=== PATIENT | male | born 1935 | race Caucasian/White ===

== ENCOUNTER 2017-02-03 20:32 | Inpatient (IN) | payer MEDICARE ==
[~2017-02-03] VITALS: Ht 184.2 cm; Wt 77.2 kg
[~2017-02-03 20:32] MED LIST: Acetaminophen PO; CEPH-512 PO; ENAL5TAB PO; ERYT1OIN7 BOTH_EYES; HYDROcodone-APAP 5-325 PO; METO25TA99 PO; NIC7 TOPICAL; POLY17PO6 PO; WARF5TAB PO
[2017-02-03 20:43] VITALS: BP 167/95; PULSE 75; RESP 16; O2SAT 98
--- NOTE | 2017-02-03 21:49 | ED.REPORT ---
HPI-Abd Pain M 40 and Over Date of Service February 03, 2017 ED Provider: Dr. Sumner Pt is an 81 y/o male anticoagulated on Warfarin w/ a hx significant for BPH, prior urinary obstruction, and prior elevated PSA, A-fib, presenting to the ED c /o urinary retention onset yesterday. Since last night, the patient has been experiencing urinary retention, abdominal pain, urinary urgency, dysuria, and appetite. He denies nausea, vomiting, fever, chills. Bladder scan shows 948 mL post void residual. Nursing Notes Stated Complaint: TROUBLE AND PAIN WITH URINATION Chief Complaint: General Complaint Nursing Notes Reviewed: Yes Allergies: Coded Allergies: Sulfa (Sulfonamide Antibiotics) (Verified Allergy, Intermediate, RASH, ) doxycycline (Unverified Adverse Reaction, Mild, 02/03/17) Scheduled ([HYDROcodone-APAP 5-325]) 1 TABLET TABLET 1 TABLET PO Q12H Cephalexin (Keflex) 500 Mg Capsule 500 MG PO BID Enalapril Maleate (Enalapril Maleate) 5 Mg Tablet 5 MG PO DAILY Erythromycin Ophth Oint (Erythromycin Ophth Oint) 14 Applic/3.5 Gm O[place] 1 APPLIC BOTH_EYES TID Metoprolol Succinate ER (Metoprolol Succinate ER) 25 Mg Tablet 25 MG PO BID Warfarin Sodium (Coumadin) 5 Mg Tablet 5 MG PO DAILY@17 Scheduled PRN ([Acetaminophen]) 325 MG TABLET 650 MG PO Q4H PRN PRN For Pain Nicotine 7 mg/24 hr Patch (Nicotine 7 mg/24 hr Patch) 1 Patch Patch 1 PATCH TOPICAL DAILY PRN PRN For Cholesterol Polyethylene Glycol 3350 (Miralax) 17 Gm Powd.pack 17 GM PO DAILY PRN PRN For Constipation General Time Seen by MD: 21:48 Chief Complaint Other (urinary retention) Hx Obtained From: Patient Arrived By: Walk-in Sudden in Onset?: No Onset Occurred: 21 - 23 hours ago Symptom Duration: Since onset Progression since Onset: Constant Location: : Abdomen lower Quality: Painful Radiation: : Does not radiate Severity: Current: Moderate Severity: Maximum: Moderate Recent Healthcare: Previous diagnosis Similar Sx Previous: Yes Past Medical History Past Medical History Significant for coronary artery disease, history of [place], atrial fibrillation on Warfarin, congestive heart failure, benign prostatic hypertrophy with urinary obstruction. The patient has also a history of elevated PSA, hyperlipidemia, blepharospasm, mild cognitive impairment/amnesia. Past Surgical History MOHS SCC scalp, neck cholecystecomy vasectomy Cardiac cath Smoking History Current Every Day Smoker Social History Alcohol Use: In recovery Ambulatory Status Independent Review of Systems Review of Systems Note: +decreased appetite Constitutional: Denies: Chills, Fever Respiratory: Denies: Non-productive cough, Shortness of breath Cardiovascular: Denies: Chest pain, Dyspnea on exertion GI: Reports: Abdominal pain, Diarrhea, Denies: Nausea, Vomiting Male: Reports Dysuria, Reports Urinary frequency, Reports Urinary urgency, Reports Urination decreased, Denies Flank pain, Denies Hematuria, Denies Incontinence, Denies Nocturia, Denies Penile discharge, Denies Penile lesion, Denies Scrotal swelling, Denies Testicular pain, Denies Testicular swelling, Denies Urination increased Complete sys rev & neg: except as marked. Physical Exam Initial Vital Signs Vital Signs (First) Date Time Temp Pulse Resp B/P Pulse Ox O2 Delivery O2 Flow Rate FiO2 02/03/17 20:43 36.1 75 16 167/95 98 Room Air Initial VS: Reviewed, Vital signs abnormal Head / Eyes: Atraumatic, Normocephalic, PERRL ENT: Mucous membranes moist, Conjunctiva normal, No scleral icterus Neck: Supple, Full range of motion Extremities: Vascular intact, Neuro intact, No swelling, No tenderness Skin: Warm, Dry, No cyanosis Neurologic: Alert, Oriented, Nonfocal Psychiatric: Mood/affect normal, Behavior normal, Normal thought content General/Constitutional: Awake, Alert, No acute distress, Cooperative, Not toxic appearing Respiratory / Chest: Breath sounds NL, Breath sounds = bilat, No respiratory distress, No rales, No rhonchi, No wheezing Cardiovascular: Heart rate NL, Heart sounds NL, No gallop, No murmurs, No rubs , Cap refill not delayed, Peripheral circulation NL Heart Rate / Rhythm: Positive: Irreg irregular rhythm Abdomen: Atraumatic, Soft, Non-tender, No guarding, No rebound Very distended bladder Back: Full range of motion, Painless range of motion Interpretation & Diagnostics Lab Results Interpretation Result Diagram: 02/03/17213902/03/172139 Test 02/03/17 21:40 02/03/17 22:05 White Blood Count 11.2th/mm3 (3.8-10.1) Red Blood Count 4.08mil/mm3 (4.40-5.80) Hemoglobin 12.2g/dL (13.8-17.2) Hematocrit 35.9% (41.0-50.0) Mean Corpuscular Volume 88.0fL (81-100) Mean Corpuscular Hemoglobin 29.9pg (27.0-35.0) Mean Corpuscular Hemoglobin Concent 34.0% (32.0-37.0) Red Cell Distribution Width 15.9% (12.3-15.4) Platelet Count 280bil/L (150-400) Neutrophils (%) (Auto) 85.2% (40-74) Lymphocytes (%) (Auto) 4.1% (14-46) Monocytes (%) (Auto) 10.5% (4-12) Eosinophils (%) (Auto) 0% (0-5) Basophils (%) (Auto) 0% (0-3) Prothrombin Time 33.3sec (8.1-12.5) Prothromb Time International Ratio 3.04ratio Sodium Level 130mEq/L (134-144) Potassium Level 4.7mEq/L (3.5-5.2) Chloride Level 91mEq/L (97-108) Carbon Dioxide Level 22mmol/L (18-29) Blood Urea Nitrogen 25mg/dL (8-27) Creatinine 1.13mg/dL (0.76-1.27) Estimat Glomerular Filtration Rate 66mL/min (>59) Glucose Level 188mg/dL (60-99) Lactic Acid Level 2.4mmol/L (0.4-2.0) Calcium Level 9.8mg/dL (8.5-10.1) Total Bilirubin 0.5mg/dL (0.0-1.2) Aspartate Amino Transf (AST/SGOT) 57U/L (0-50) Alanine Aminotransferase (ALT/SGPT) 35U/L (0-44) Alkaline Phosphatase 112U/L (25-160) Total Protein 7.1g/dL (6.4-8.4) Albumin 4.0g/dL (3.4-5.0) Hold Damon Top Tube Received (Received) Urine Color Yellow (YELLOW) Urine Appearance Clear (CLEAR,HAZY) Urine pH 6.0 (5.0-8.0) Urine Specific [place] 1.015 (1.003-1.035) Urine Protein Tracemg/dL (NEG,TRACE) Urine Glucose (UA) Negativemg/dL (NEGATIVE) Urine Ketones Tracemg/dL (NEGATIVE) Urine Occult Blood Small (NEGATIVE) Urine Nitrite Negative (NEGATIVE) Urine Bilirubin Negative (NEGATIVE) Urine Urobilinogen Normalmg/dL (NORMAL) Urine Leukocyte Esterase Negative (NEGATIVE) Urine RBC 11-50/hpf (0-2) Urine WBC 0-5/hpf (0-5) Urine Epithelial Cells Occasional/hpf (NONE-MOD) Urine Crystals None seen (NONE SEEN) Urine Bacteria None/hpf (NONE-FEW) Urine Hyaline Casts None/lpf (NONE) Urine Granular Casts None seen (NONE SEEN) Urine Waxy Casts None seen (NONE SEEN) Urine Red Blood Cell Casts None seen (NONE SEEN) Urine White Blood Cell Casts None seen (NONE SEEN) Urine Mucus None seen (None Seen) Urine Trichomonas None seen (NONE SEEN) Urine Yeast None (NONE SEEN) Urine Culture Reflexed Not indicated Point of Care Testing: Lactate elevated CBC Interpretation CBC normal except, WBC elevated BMP / CMP Interpretation BMP/CMP normal except, Na low, Glucose elevated Urinalysis Interpretation Positive blood CT Abd / Pelvis Interpretation Impression: No small bowel obstruction Appendix not identified and may be surgically absent Diverticulosis with no evidence of diverticulitis. Enlarged and heterogenous prostate gland may be secondary to prostate gland hypertrophy versus neoplasm. Followup is recommended. no evidence of obstructive uropathy Status post cholecystectomy Hepatomegaly with cirrhotic liver changes Abundant retroperitoneal fat may be secondary to cortical steroid usage Right pleural effusion with adjacent atelectasis Transmitted to the ED by Mundo Bowman MD at 0113 Study type: Abdominal CT IV contrast Interpretation / Wet Read by: Interpret - Radiologist Re-Eval/Medical Decision Med Decision/Clinical Course Mr. Gutierrez has had significant growth in the size of the right-sided pleural effusion. Initially thoughts were that this was a parapneumonic effusion and he had been given a single dose of doxycycline. This led to some shortness of breath so therefore he has not been on any antibiotics. His bladder has been successfully decompressed with a Lambert and his got is otherwise benign now. The pleural effusion is far more worrisome. I will place him on IV antibiotics in minimal hospital to have the pleural effusion evaluated and possibly tapped for definitive diagnosis. Source of Hx: Old records Time of Eval: 01:47 Re-Evaluation/Progress Note: Pt rechecked. Informed pt of need for admission. Pt understands and agrees with plan for admission. All questions addressed. Consultation : Referral / Consult Name: Fredi Loo MD Consulted With: Hospitalist Call Returned at: 01:47 Drawing Tracer: Will see patient, Agrees with eval, Agrees with plan, Accepts admit Counseled Regarding: Diagnosis, Lab results, Need for admission Discharge & Departure Primary Impression: Urinary retention Additional Impressions: Pneumonia Pneumonia type: due to unspecified organism Laterality: right Lung location : lower lobe of lung Qualified Code: J18.1 - Lobar pneumonia, unspecified organism Parapneumonic effusion Disposition: ADMITTED TO HOSPITAL Vital Signs - All Vital Signs Date Time Temp Pulse Resp B/P Pulse Ox O2 Delivery O2 Flow Rate FiO2 02/04/17 00:01 66 20 143/75 97 Room Air 02/03/17 20:43 36.1 75 16 167/95 98 Room Air )( All Prior VS Reviewed: Yes Condition: Stable Referrals: Charanjit Coleman MD (PCP) Juan Lew MD Attestation Portions of this note were transcribed by Kannan Overton. I, Dr. Sumner personally performed the history, physical exam and medical decision-making; I reviewed and confirmed the accuracy of the information in the transcribed note. Signed by Gregor Kumari, 02/03/17 - 2200 copies to: Charanjit Coleman MD; Juan Lew MD, Todd P DO February 03, 2017 21:49 KANNAN OVERTON February 03, 2017 21:52
[2017-02-03 21:54] LABS: BASOPHILS % (AUTO) 0 % (0-3); EOSINOPHILS % (AUTO) 0 % (0-5); MONOCYTES % (AUTO) 10.5 % (4-12); Mean Corpuscular Hemoglobin 29.9 pg (27.0-35.0); NEUTROPHILS % (AUTO) 85.2 % (40-74); Platelet Count 280 bil/L (150-400)
[2017-02-03 22:07] LABS: INR 3.04 ratio
[2017-02-03 22:39] LABS: APPEARANCE,URINE CLEAR (CLEAR,HAZY); COLOR,URINE YELLOW (YELLOW); OCCULT BLOOD,URINE SMALL (NEGATIVE); UROBILINOGEN,URINE NORMAL (NORMAL)
[2017-02-03] MEDS ORDERED: 0.9% Sodium Chloride 500 ML IV ONE (22:50)
[2017-02-04] VITALS (9 sets, daily range): BP systolic 143–169; BP diastolic 51–106; PULSE 59–74; RESP 18–24; O2SAT 94–98
[2017-02-04] MEDS ORDERED: cefTRIAXone Inj 2,000 MG in Dextrose 5% Minibag Plus 50 ML IV ONE (01:55)
[2017-02-04] MEDS ORDERED: Ondansetron 2 mg/mL 2 mL Inj IVPUSH PRN (02:10)
[2017-02-04] MEDS ORDERED: Polyethylene Glycol (PEG) 17 Gm Powder PO PRN ×2 (02:10→04:05)
[2017-02-04] MEDS ORDERED: Alum-Mag Hydrox-Simeth 30 mL Suspension PO PRN (02:10)
--- NOTE | 2017-02-04 02:55 | PCM.HPMED ---
Subjective Date of Service February 04, 2017 Primary Provider: Admitting Physician: Fredi Loo MD Primary Care Physician: Charanjit Coleman MD Attending Physician: Fredi Loo MD Chief Complaint: Pleural Effusion, Urinary retention History of Present Illness: Mr. Gutierrez is a 81-year-old male with a past medical history of dementia, atrial fibrillation (on anticoagulation), BPH -with urinary obstruction who presented to the emergency department secondary to abdominal pain 1 day. Per patient's patient had been having an increase in his lower abdominal pressure with resultant pain for the last day or 2, has been drinking more water than usual though he reports going to the bathroom quite frequently she does not have a effective urinary output which results in urinary retention/ bladder distention and abdominal pain. He also endorses a persistent cough and dyspnea on exertion for which she was referred to cardiology on 01/16/[address] scan for a pulmonary nodule, this scan showed a trace right pleural effusion for which she was given the antibiotic doxycycline. Patient states he took 1 pill of the doxycycline developed GI problems and discontinued taking this medication. On 01/31/2017 he was seen in urgent care for shortness of breath, was diagnosed with reactive airway disease and given duo nebs & Qvar CXR showed atelectasis, cardiomegaly but no focal infiltrates. Today he denies fevers/chills, nausea/vomiting, chest pain though he does state a consistent shortness of breath with a slightly productive cough, abdominal pain , dysuria, urinary retention and urinary urgency. A comprehensive review of systems was conducted with the patient and found to be negative except as above in the history of present illness. In the ED patient demonstrated an approximate 0.95 L post void residual, received Lambert catheter with resultant extensive urinary output and relief of lower abdominal pain. An incidental finding of CT showed an extensive right sided pleural effusion which when compared to previous CT chest done 01/23/2017 shows a markedly increase in fluid accumulation. White count 11.2, sodium 1:30, glucose 188, lactic acid 2.4, INR 3.04 Review of Systems: Pertinent positives as noted in HPI. All other systems were reviewed and are negative Allergies Coded Allergies: Sulfa (Sulfonamide Antibiotics) (Verified Allergy, Intermediate, RASH, ) doxycycline (Unverified Adverse Reaction, Mild, 5/31/17) Home Medications Per outpatient records: Warfarin; 5 mg Thursday, 7.5 mg Mondays and Enalapril 10 mg daily Donepezil 10 mg at bedtime Namenda 21 mg daily Oxybutynin chloride 2.5 mg twice a day Metoprolol succinate 25 mg Combivent Qvar Ipratropium albuterol Prednisone 40 mg daily PMH coronary artery disease, history of [place], atrial fibrillation on Warfarin, congestive heart failure, benign prostatic hypertrophy with urinary obstruction. Elevatedrlipidemia, blepharospasm, mild cognitive impairment/amnesia. Tachybradycardia syndrome Pacemaker placement Surgical History MOHS SCC scalp, neck cholecystecomy vasectomy Cardiac cath Family History Father of cancer age 84 Mother CVA age 74, aplastic anemia 2 children in good health Social History Hx Alcohol Use: Yes (Occ rum mixer) Hx Substance Use: No Hx Tobacco Use: Yes Smoking Status: Current Every Day Smoker Living Arrangement: with Family Exam Vital Signs Vital Sign - Last Date Time Temp Pulse Resp B/P Pulse Ox O2 Delivery O2 Flow Rate FiO2 02/04/17 00:01 66 20 143/75 97 Room Air 02/03/17 20:43 36.1 Intake and Output 02/03/17 02/03/17 02/04/17 Cumulative From/Thru 15:00 23:00 07:00 02/03/17 20:43 - 02/03/17 23:11 Intake Total 500 ml 500 ml Output Total 2400 ml 2400 ml Balance -2400 ml 500 ml -1900 ml Intake IV Total 500 ml 500 ml Output Urine Total 2400 ml 2400 ml Bladder Scan Volume Amount 948mL Exam General: Laying in bed in no acute distress, well-developed, well-nourished, appropriately interactive HEENT: Normocephalic, atraumatic. External ears without defect. Pupils equal, round, and reactive to light and accommodation. Neck: Supple with full range of motion. No jugular venous distension. Cardiovascular: Regular rate with irregular rhythm. No murmurs, rubs, or gallops appreciated Pulmonary: Normal respiratory effort with no use of accessory muscles. Lung sounds decreased right posterior lung parisi, crackles right lower lung field Abdomen: Bowel tones present. Soft, nontender, nondistended. No suprapubic tenderness : Lambert cath in place Extremities: No clubbing, cyanosis, edema, or lymphadenopathy appreciated. Skin: Normal temperature, turgor, and texture Neurological: Cranial nerves grossly intact. Psychiatric: Normal mood and affect. Lab and Diagnostics Result Diagram: 02/03/17213902/03/172139 X-Rays, CTs and MRIs CT abdomen and pelvis, [place] read Impression: No small bowel obstruction Appendix not identified and may be surgically absent Diverticulosis with no evidence of diverticulitis. Enlarged and heterogenous prostate gland may be secondary to prostate gland hypertrophy versus neoplasm. Followup is recommended. no evidence of obstructive uropathy Status post cholecystectomy Hepatomegaly with cirrhotic liver changes Abundant retroperitoneal fat may be secondary to cortical steroid usage Right pleural effusion with adjacent atelectasis Transmitted to the ED by Mundo Bowman MD at 0113 Assessment & Plan Mr. Gutierrez is a 81-year-old male with a past medical history of dementia, atrial fibrillation (on anticoagulation), BPH -with urinary obstruction admitted for right sided pleural effusion and urinary retention Acute Right Pleural effusion. Present on admission. Ongoing - CT scan in the ED showed incidental finding of markedly increase in right- sided pleural effusion - Initially thought to be Parapneumonic effusion, given single dose doxycycline approximately one week ago. Patient DC'd ABX secondary to adverse reaction - White count 11.2, pro calcitonin pending, afebrile - Given ceftriaxone, ciprofloxacin and cephalexin in ED - Sputum culture - Respiratory PCR pending - Thoracentesis ordered, pleural fluid analysis to determine etiology (Lights criteria) Lactic acidosis due to tissue hypoxia. Present on admission. Ongoing - Lactic acid 2.4 in ED - IV fluids given in ED - Continue to monitor Chronic A. fib. with supra therapeutic INR. Present on admission. Ongoing - Hold home warfarin secondary to thoracentesis, med rec pending - Repeat INR BPH with urinary retention. Ongoing - This was chief complaint of patient upon presentation to the ED - Symptoms resolved status post Lambert cath placement - Consider urology consult/recommendations Chronic Systolic heart failure. Ongoing - Last echo 2014 shows EF 35-40% - Continue metoprolol - Continue home enalapril - Conservative fluid administration Nicotine dependence. Present on admission. Ongoing - Nicotine patch Complete medication reconciliation pending, patient has multiple medications per outpatient records that do not populate on inpatient med rec. - Acetaminophen as needed for mild pain/fever/headache - Bowel regimen as needed - Antiemetic as needed Patient admitted under inpatient status with expected length of stay > 2 midnights for severity of present symptoms, complexities of treatment plan and risk for adverse event . Pain Evaluation: Adequate Pain Control GI Prophylaxis: H2 chela VTE Prophylaxis: SCDs Resuscitation Status: CPR: Attempt Resuscitation Attending Statement The patient was seen and examined together with Dr. Newell on 02/04 and I agree with the history, exam and plan as outlined in the note above. JEFERSON NEWELL DO February 04, 2017 02:55 Fredi Loo MD February 04, 2017 03:48
[2017-02-04 04:25] LABS: BASOPHILS % (AUTO) 0.1 % (0-3); EOSINOPHILS % (AUTO) 0.1 % (0-5); MONOCYTES % (AUTO) 12.2 % (4-12); Mean Corpuscular Hemoglobin 29.6 pg (27.0-35.0); Mean Corpuscular Volume 87.9 fL (81-100); NEUTROPHILS % (AUTO) 82.2 % (40-74); Platelet Count 232 bil/L (150-400)
[2017-02-04 04:41] LABS: INR 3.03 ratio
[2017-02-04 04:48] LABS: Magnesium 2.2 mg/dL (1.6-2.6)
[2017-02-04 08:20] LABS: Magnesium 2.1 mg/dL (1.6-2.6)
--- NOTE | 2017-02-04 08:27 | DRSVH ---
PROCEDURE: CT ABDOMEN AND PELVIS WITH CONTRAST ([id number]) INDICATIONS: abdominal pain, TECHNIQUE: After the administration of intravenous contrast, 5 mm thick sections acquired from the diaphragm to the symphysis. 5 mm coronal and sagittal reformats were acquired. For radiation dose reduction, the following was used: automated exposure control, adjustment of mA and/or kV according to patient siz e. COMPARISON: None. FINDINGS: Image quality: Excellent. ABDOMEN: Lung bases: Moderate right pleural effusion with adjacent atelectasis. Heart is enlarged, with marked right atrial enlargement Solid organs: There is reflux of IV contrast and hepatic veins suggesting decreased cardiac output; recommend clinical correlation. There is hepatomegaly, and possible cirrhotic changes although techni martina indeterminate. The spleen is grossly unremarkable. Gallbladder surgically absent. Biliary syst em is non dilated. Pancreas appears atrophic. There are scattered pancreatic calcifications. No adr enal nodules. Bilateral renal cortical thinning. Simple appearing left renal cyst measuring approxima tely 3 cm in the inferior pole. Bilateral mild pelviectasis, without definite hydronephrosis. Peritoneum and bowel: Bowel loops demonstrate normal wall thickness and caliber. No free fluid or a ir. No evidence of bowel obstruction. Appendix not identified however no suspicious right lower quadr ant inflammatory changes. Nodes and vessels: No retroperitoneal or mesenteric adenopathy by size criteria. Aorta and inferior vena cava are normal in size. Miscellaneous: No ventral hernias. PELVIS: Genitourinary: Lambert catheter is present. Bladder is decompressed. There is marked enlargement of the prostate. Miscellaneous: No inguinal hernias or adenopathy. Bones: No suspicious bony lesions. No vertebral body compression fractures. IMPRESSION: Moderate right pleural effusion with adjacent atelectasis. Cardiomegaly, and associated CT evidence of decreased cardiac output. Please correlate clinically. Appendix not identified. Please relate clinically and with laboratory data. Marked enlargement of the prostate. Please correlate clinically and with biochemical data such as PSA . No definite hydronephrosis. Left renal cyst. Status post cholecystectomy. Scattered colonic diverticula without evidence of acute complication Hepatomegaly. Please correlate clinically and with LFTs. Dictated by: Cyril Washburn M.D. on 02/04/2017 at 8:17 Approved by: Cyril Washburn M.D. on 02/04/2017 at 8:24
[2017-02-04] MEDS ORDERED: Erythromycin 0.5% 3.5 Gm Ophthalmic Ointment BOTH_EYES SCH (08:30)
[2017-02-04] MEDS: MeTOProlol XL 25 mg ER24 Tablet PO SCH ×2 (08:40→21:01)
[2017-02-04] MEDS ORDERED: WARF5TAB7 PO (12:59)
[2017-02-04] MEDS ORDERED: WARF7.5T4 PO (12:59)
[2017-02-04] MEDS ORDERED: ACET325T51 PO (12:59)
[2017-02-04] MEDS ORDERED: DONE10TA42 PO (13:10)
[2017-02-04] MEDS ORDERED: OXYB5TAB10 PO (13:10)
[2017-02-04] MEDS ORDERED: MEMA21CA PO (13:10)
[2017-02-05 04:55] VITALS: BP 140/77; PULSE 52; RESP 18; O2SAT 95
[2017-02-05] MEDS: Vancomycin Dose per Pharmacist XX SCH ×2 (05:05→08:30)
[2017-02-05] MEDS ORDERED: Vancomycin Inj 1,500 MG in 0.9% Sodium Chloride 500 ML IV ONE (07:10)
--- NOTE | 2017-02-05 07:20 | PCM.CONPHA ---
"Subjective Pleural Effusion, Urinary retention Reason for Pharmacy Consult: Vancomycin Dosing Objective Vital Signs Date Time Temp Pulse Resp B/P Pulse Ox O2 Delivery O2 Flow Rate FiO2 02/05/17 04:55 36.5 52 18 140/77 95 Room Air 02/04/17 20:54 36.7 59 18 160/73 94 Room Air 02/04/17 17:26 37.2 63 18 160/51 95 Room Air 02/04/17 09:28 36.4 60 18 164/84 95 Room Air 02/04/17 09:25 65 Intake and Output 02/03/17 02/04/17 02/05/17 00:00 00:00 00:00 Intake Total 500 ml 837 ml Output Total 2400 ml 2175 ml Balance -1900 ml -1338 ml Weight (Kilograms): 78.400 Height (Feet): 6 Height (Inches): 0.50 Test 02/03/17 21:40 02/03/17 22:05 02/04/17 02:25 02/04/17 04:20 Hold Damon Top Tube Received (Received) Urine Color Yellow (YELLOW) Urine Appearance Clear (CLEAR,HAZY) Urine pH 6.0 (5.0-8.0) Urine Specific [place] 1.015 (1.003-1.035) Urine Protein Tracemg/dL (NEG,TRACE) Urine Glucose (UA) Negativemg/dL (NEGATIVE) Urine Ketones Tracemg/dL (NEGATIVE) Urine Occult Blood Small (NEGATIVE) Urine Nitrite Negative (NEGATIVE) Urine Bilirubin Negative (NEGATIVE) Urine Urobilinogen Normalmg/dL (NORMAL) Urine Leukocyte Esterase Negative (NEGATIVE) Urine RBC 11-50/hpf (0-2) Urine WBC 0-5/hpf (0-5) Urine Epithelial Cells Occasional/hpf (NONE-MOD) Urine Crystals None seen (NONE SEEN) Urine Bacteria None/hpf (NONE-FEW) Urine Hyaline Casts None/lpf (NONE) Urine Granular Casts None seen (NONE SEEN) Urine Waxy Casts None seen (NONE SEEN) Urine Red Blood Cell Casts None seen (NONE SEEN) Urine White Blood Cell Casts None seen (NONE SEEN) Urine Mucus None seen (None Seen) Urine Trichomonas None seen (NONE SEEN) Urine Yeast None (NONE SEEN) Urine Culture Reflexed Not indicated Procalcitonin 0.07ng/mL (0.00-0.08) White Blood Count 11.3th/mm3 (3.8-10.1) Red Blood Count 3.71mil/mm3 (4.40-5.80) Hemoglobin 11.0g/dL (13.8-17.2) Hematocrit 32.6% (41.0-50.0) Mean Corpuscular Volume 87.9fL (81-100) Mean Corpuscular Hemoglobin 29.6pg (27.0-35.0) Mean Corpuscular Hemoglobin Concent 33.7% (32.0-37.0) Red Cell Distribution Width 16.0% (12.3-15.4) Platelet Count 232bil/L (150-400) Neutrophils (%) (Auto) 82.2% (40-74) Lymphocytes (%) (Auto) 4.9% (14-46) Monocytes (%) (Auto) 12.2% (4-12) Eosinophils (%) (Auto) 0.1% (0-5) Basophils (%) (Auto) 0.1% (0-3) Prothrombin Time 33.2sec (8.1-12.5) Prothromb Time International Ratio 3.03ratio Lactic Acid Level 1.1mmol/L (0.4-2.0) Lactate Dehydrogenase 263U/L (100-190) Test 02/04/17 07:37 Sodium Level 138mEq/L (134-144) Potassium Level 4.5mEq/L (3.5-5.2) Chloride Level 101mEq/L (97-108) Carbon Dioxide Level 25mmol/L (18-29) Blood Urea Nitrogen 22mg/dL (8-27) Creatinine 1.11mg/dL (0.76-1.27) Estimat Glomerular Filtration Rate 68mL/min (>59) Glucose Level 98mg/dL (60-99) Calcium Level 9.3mg/dL (8.5-10.1) Magnesium Level 2.1mg/dL (1.6-2.6) Total Bilirubin 0.3mg/dL (0.0-1.2) Aspartate Amino Transf (AST/SGOT) 44U/L (0-50) Alanine Aminotransferase (ALT/SGPT) 29U/L (0-44) Alkaline Phosphatase 95U/L (25-160) Total Protein 5.7g/dL (6.4-8.4) Albumin 3.2g/dL (3.4-5.0) Assessment/Plan Assessment/Plan Vancomycin dose per pharmacy 81y/o Patient with positive blood culture SCr 1.11 SCr & ClCr 1.11 58 t /2 |Vd 13 55 Febrile | Shocky no no WBC | Lact 11.3 PROCAL | MRSA 0.7 U.Ag's| PCR neg LD | time 1500 0800 Dose | Interval 750 12 Plan: * Start vanco 20mg/kg x 1 loading dose, followed by 10mg/kg Q 12 hours * Trough prior to 4th dose (02/06 @ 1999) * Pharmacy will continue to follow patient vanco trough levels and adjust dose according to protocol. Oralia Pearson Pharm.D Feb 05, 2017 07:20"
[2017-02-05] MEDS: MeTOProlol XL 25 mg ER24 Tablet PO SCH ×2 (08:49→21:56)
[2017-02-05 13:26] LABS: INR 2.13 ratio
[2017-02-05 13:57] VITALS: BP 155/83; PULSE 60; RESP 18; O2SAT 96
--- NOTE | 2017-02-05 16:47 | PCM.PNMED ---
Subjective Date of Service Feb 05, 2017 Subjective Patient without complaints in particular. [id number] is at the bedside voices concerns about his weakness, dyspnea with minimal exertion, urinary retention, pleural effusion and multitudes of issues. The patient for his part she tells me does not mention things such as the fact that when he went to urinate multiple times per day. He was not able to urinate at all, this came us us apprised of family when they got to the emergency room. Exam Vital Signs Vital Sign - Last Date Time Temp Pulse Resp B/P Pulse Ox O2 Delivery O2 Flow Rate FiO2 02/05/17 13:57 36.3 60 18 155/83 96 Room Air Intake and Output 02/04/17 02/04/17 02/05/17 Cumulative From/Thru 15:00 23:00 07:00 02/03/17 20:43 - 02/05/17 05:36 Intake Total 0 ml 520 ml 200 ml 1537 ml Output Total 400 ml 575 ml 350 ml 4925 ml Balance -400 ml -55 ml -150 ml -3388 ml Intake Oral 0 ml 520 ml 200 ml 720 ml IV Total 817 ml Output Urine Total 400 ml 575 ml 350 ml 4925 ml # Bowel Movements 1 1 Exam Gen.- A+ O 2-3 no apparent distress. Frail thin male sitting up in bed Eyes- open conjunctiva clear, pupils equal nonicteric ENT- ears normal, nose normal Neck- supple/trach midline CVS- RRR no murmur or gallop Lungs CTA possibly slight decreased breath sounds right base GI- NABS/NT soft Musc- moving 4 no obvious deformity Neuro- cranial nerves II through XII intact to gross examination, nonfocal Skin- warm and dry, no rashes/lesions/wounds noted Psych- pleasant and appropriate, Lab and Diagnostics Result Diagram: 02/04/17 0420 02/05/17 0730 X-Rays, CTs and MRIs CT abdomen and pelvis, [place] read Impression: No small bowel obstruction Appendix not identified and may be surgically absent Diverticulosis with no evidence of diverticulitis. Enlarged and heterogenous prostate gland may be secondary to prostate gland hypertrophy versus neoplasm. Followup is recommended. no evidence of obstructive uropathy Status post cholecystectomy Hepatomegaly with cirrhotic liver changes Abundant retroperitoneal fat may be secondary to cortical steroid usage Right pleural effusion with adjacent atelectasis Transmitted to the ED by Mundo Bowman MD at 0113 Assessment & Plan 81-year-old male admitted 02/04 came in because of abdominal pain/urinary obstruction has been having ongoing issues with dyspnea and cough. 02/05 frail elderly male who has been having difficulties for the last couple weeks and is more than his can manage at home. I am meeting this medically complex patient for the first time 02/05. It appears atrial fibrillation is controlled, he is frail and between CHF and large pleural effusion is causing fairly substantial dyspnea. Hopefully removing this effusion will correct this, and also help define the etiology of the effusion. Dyspnea with exertion- differential includes acute systolic CHF, versus uncontrolled A. fib, versus pneumonia with parapneumonic effusion, probable COPD ? Exacerbation? Secondary to tobacco abuse -Echo, BNP pending 02/05 -PT to ambulate patient and follow heart rate -Awaiting INR to drop for thoracentesis, pro calcitonin normal seems unlikely to be infection however continuing Augmentin/bronchodilators, prednisone 40 mg daily 02/05 -Stopping vancomycin as patient is MRSA negative and single blood culture positive seems unlikely to be more than contaminant given the overall picture. Acute Right Pleural effusion. Present on admission. Ongoing - CT scan in the ED showed incidental finding of markedly increase in right- sided pleural effusion - Initially thought to be Parapneumonic effusion, given single dose doxycycline approximately one week ago. Patient DC'd ABX secondary to adverse reaction - White count 11.2, pro calcitonin normal 02/04, afebrile - Given ceftriaxone, ciprofloxacin and cephalexin in ED - Sputum culture - Respiratory PCR pending - Thoracentesis ordered, pleural fluid analysis to determine etiology (Lights criteria) BPH with urinary retention. Ongoing - This was chief complaint of patient upon presentation to the ED - Symptoms resolved status post Lambert cath placement Chronic A. fib. with supra therapeutic INR. Present on admission. Ongoing - Hold home warfarin secondary to thoracentesis, med rec pending - Repeat INR HTN/Chronic Systolic heart failure. Ongoing-checking echocardiogram and BNP likely acute systolic CHF - Last echo 2014 shows EF 35-40% - Continue metoprolol - Continue home enalapril - Conservative fluid administration Nicotine dependence. Present on admission. Ongoing - Nicotine patch Complete medication reconciliation pending, patient has multiple medications per outpatient records that do not populate on inpatient med rec. - Acetaminophen as needed for mild pain/fever/headache - Bowel regimen as needed - Antiemetic as needed Patient admitted under inpatient status with expected length of stay > 2 midnights for severity of present symptoms, complexities of treatment plan and risk for adverse event . GI Prophylaxis: H2 chela VTE Prophylaxis: SCDs VTE Mechanical Devices: Intermittant Pneumatic CD Resuscitation Status: CPR: Attempt Resuscitation Kamar Bhandari MD Feb 05, 2017 16:47
[2017-02-05] MEDS ORDERED: Albuterol-Ipratropium 3 mL Inhalation Solution NEB PRN (16:50)
--- NOTE | 2017-02-05 17:41 | DRSVH ---
[facility] [address] [place] [address] Echocardiogram Report Name: CURTIS LEWIS CStudy Date: 02/05/2017 Height: 72 in Hospital Exam Location: [facility] Weight: 172 lb Gender: Male BSA: 2.0 m2 : 1935 Age: 81 yrs BP: 155/83 mmHg Reason For Study: Dyspnea History: CAD Ordering Physician: Performed By: Sarahi NORTONIST [facility] Interpretation Summary The left ventricle is mildly dilated. This is increased compared to the previous study (LVIDd increased from 5.1 to 5.9 cm). The ejection fraction is estimated to be 35-40% (No significant change). The right ventricle is mildly dilated. There is a pacemaker lead in the right ventricle (New). The right ventricular systolic function is normal. This is improved compared to the previous study. There is severe biatrial enlargement. Both atria have remained unchanged in size since the prior echo exam. There is mild to moderate mitral regurgitation. Compared to the prior echo study, there has been no change in the severity of mitral regurgitation. There is moderate to severe tricuspid regurgitation. Compared to the prior echo exam, there has been no change in TR severity. The right ventricular systolic pressure is estimated at 51 mmHg assuming a right atrial pressure of 8 mm Hg. Compared to the prior echo exam, there has been an increase in the severity of pulmonary hypertension. There is a small right-sided pleural effusion (New). Procedure: A two-dimensional transthoracic echocardiogram with color flow and Doppler was performed. The study quality was technically good. Comparison is made with the echocardiogram of 08/02/2015. The patient has a paced rhythm. Left Ventricle: The left ventricle is mildly dilated. Left ventricular wall thickness is mildly increased. This is increased compared to the previous study. There is no thrombus. The ejection fraction is estimated to be 35-40%. There has been no significant change since the previous study. Septal motion is consistent with conduction abnormality. There is mild to moderate global hypokinesis of the left ventricle. Diastolic function could not be accurately assessed due to paced rhythm. Right Ventricle: There is a pacemaker lead in the right ventricle. The right ventricle is mildly dilated. The right ventricular systolic function is normal. This is improved compared to the previous study. Atria: There is severe biatrial enlargement. Both atria have remained unchanged in size since the prior echo exam. There is no Doppler evidence for an interatrial shunt. Mitral Valve: The mitral valve leaflets appear borderline thickened, but open well. There is mild mitral annular calcification. There is mild to moderate mitral regurgitation. Compared to the prior echo study, there has been no change in the severity of mitral regurgitation. Aortic Valve: The aortic valve is trileaflet. The aortic valve opens well. The aortic valve is slightly calcified. There is trace aortic regurgitation. Tricuspid Valve: The tricuspid valve leaflets are thin and pliable. The tricuspid annulus is dilated. There is moderate to severe tricuspid regurgitation. The right ventricular systolic pressure is estimated at 51 mmHg assuming a right atrial pressure of 8 mm Hg. Compared to the prior echo exam, there has been no change in TR severity. Compared to the prior echo exam, there has been an increase in the severity of pulmonary hypertension. Pulmonic Valve: The pulmonic valve leaflets are thin and pliable; valve motion is normal. There is mild pulmonic regurgitation. Great Vessels: The aortic root is normal size. The ascending aorta is normal in size. The aortic arch is normal in size. The pulmonary artery is normal size. The IVC is of normal diameter and collapses less than 50% with a sniff. This suggests a right atrial pressure of 8 mm Hg. Pericardium/ Pleura There is no pericardial effusion. There is a small right-sided pleural effusion. MMode/2D Measurements & Calculations LVIDd: 5.9 cm LA dimension: 5.2 cm RA long axis LVOT diam: 2.3 cm LVIDs: 3.7 cm AoV Opening FS: 38.1 % LA A2 area: 27.6 cm RA area EPSS: 0.82 cm LA A4 area: 36.3 cm Ao root diam IVSd: 1.2 cm LA length (vol) : 38.9 cm LVPWd: 1.1 cm RA vol Aortic Jxn: 2.6 cm LA vol: 129.6 ml : 170.ml asc Aorta Diam LA vol index RA : 85.2 mm2 Ao Arch Diam (Prox Trans): 2.6 cm IVC diam: 1.9 cm LV carrizales. diameter/BSA LV sys. diameter/BSA RVD1 (basal) RVD2 (mid): 3.3 cm (cm/m^2): 3.0 (cm/m^2): 1.8 TAPSE: 1.9 cm Doppler Measurements & Calculations Ao V2 max MV E max malachi Med Peak E' Malachi TR max malachi : 120.8 cm/sec : 72.1 cm/sec : 327.7 cm/sec Ao max P.8 mmHg MV P1/2t E/E' med: 16.0 TR max PG Ao mean P.5 mmHg : 54.2 msec Lat Peak E' Malachi : 43.0 mmHg LVOT Max Malachi PA V2 max : 68.3 cm/sec E/E' lat: 6.8 : 58.2 cm/sec E/e' average PA mean PG JOHANNA(I,D): 2.5 cm : 0.74 mmHg sev ratio: 0.60 PA Accel Time : 0.07 sec MV P1/2t max malachi Ao V2 mean LV V1 max PG PA V2 mean : 73.7 cm/sec : 40.3 cm/sec Ao V2 VTI LV V1 VTI: 13.2 cm MVA(P1/2t): 4.1 cm2 JOHANNA(V,D): 2.3 cm2 JOHANNA indexed to BSA (cm^2/m^2): 1.3 Reading Physician:ALISON
[2017-02-05] MEDS: predniSONE 20 mg Tablet PO SCH (18:06)
[2017-02-05] MEDS ORDERED: Vancomycin Inj 750 MG in 0.9% Sodium Chloride 250 ML IV SCH (20:30)
[2017-02-05 21:05] VITALS: BP 164/80; PULSE 62; RESP 18; O2SAT 95
[2017-02-05] MEDS: Amoxicillin-Clav 875-125 mg Tablet PO SCH (21:54)
[2017-02-06] MEDS ORDERED: Micafungin Inj 100 MG in 0.9% Sodium Chloride 100 ML IV SCH (03:15)
[2017-02-06] MEDS ORDERED: 0.9% Sodium Chloride 250 ML ONE (03:46)
[2017-02-06 03:48] LABS: INR 1.79 ratio
[2017-02-06 05:48] VITALS: BP 169/84; PULSE 66; RESP 18; O2SAT 97
[2017-02-06 09:18] VITALS: BP 161/87; PULSE 64; RESP 16; O2SAT 95
[2017-02-06] MEDS: MeTOProlol XL 25 mg ER24 Tablet PO SCH (09:20)
[2017-02-06] MEDS: Amoxicillin-Clav 875-125 mg Tablet PO SCH (09:21)
[2017-02-06] MEDS: predniSONE 20 mg Tablet PO SCH (09:21)
--- NOTE | 2017-02-06 11:18 | PCM.DIMED ---
Discharge Instructions Date of Service Feb 06, 2017 Dates of Hospitalization February 04, 2017 at 02:24 Discharge Diagnosis Discharge Diagnosis Urinary retention, dyspnea, weakness, HTN, CHF acute/chronic Diet Discharge Diet: Low fat, Low Sodium Activity Discharge Activity: No restrictions Call your provider Call your provider for: Shortness of breath Patient Instructions Follow-up Provider: Charanjit Coleman MD Follow-up with PCP in: 1 week (within one week for blood pressure/CHF) Provider: Maira Dominguez MD Follow-up in: 1 week (call for follow-up JOSE) Kamar Bhandari MD Feb 06, 2017 11:18
--- NOTE | 2017-02-06 11:27 | PCM.DC.MED ---
Discharge Summary Date of Service Feb 06, 2017 Dates of Hospitalization Date of Hospital Admission February 04, 2017 at 02:24 Date of Discharge: Feb 06, 2017 Providers: Admitting Physician: Fredi Loo MD Primary Care Physician: Charanjit Coleman MD Attending Physician: Fredi Loo MD Diagnosis at Time of Discharge Diagnosis at Time of Discharge Urinary retention, dyspnea, weakness, HTN, CHF acute/chronic Consultations None Procedures XRay, CTs & MRIs CT abdomen and pelvis, [place] read Impression: No small bowel obstruction Appendix not identified and may be surgically absent Diverticulosis with no evidence of diverticulitis. Enlarged and heterogenous prostate gland may be secondary to prostate gland hypertrophy versus neoplasm. Followup is recommended. no evidence of obstructive uropathy Status post cholecystectomy Hepatomegaly with cirrhotic liver changes Abundant retroperitoneal fat may be secondary to cortical steroid usage Right pleural effusion with adjacent atelectasis Transmitted to the ED by Mundo Bowman MD at 0113 Cardiac Echo Impression Echocardiogram Report: Isamar Abel on 02/05/2017 05:40 The left ventricle is mildly dilated. This is increased compared to the previous study (LVIDd increased from 5.1 to 5.9 cm). The ejection fraction is estimated to be 35-40% (No significant change). The right ventricle is mildly dilated. There is a pacemaker lead in the right ventricle (New). The right ventricular systolic function is normal. This is improved compared to the previous study. There is severe biatrial enlargement. Both atria have remained unchanged in size since the prior echo exam. There is mild to moderate mitral regurgitation. Compared to the prior echo study, there has been no change in the severity of mitral regurgitation. There is moderate to severe tricuspid regurgitation. Compared to the prior echo exam, there has been no change in TR severity. The right ventricular systolic pressure is estimated at 51 mmHg assuming a right atrial pressure of 8 mm Hg. Compared to the prior echo exam, there has been an increase in the severity of pulmonary hypertension. There is a small right-sided pleural effusion (New). Reading Physician:ALISON Invasive Procedures Cath Rossy Huizar MD 10/04/14 [id number] FINDINGS: 1. Femoral angiogram: Right common femoral artery gives rise to SFA and profunda. There is no evidence of contrast extravasation or dissection. There is no significant disease identified. 2. Hemodynamics: Aortic pressure was 159/80. Left ventricular end-diastolic pressure is 12. There is no evidence of aortic stenosis based on pullback. Right ventricular pressure 43 with right ventricular end-diastolic pressure of 4. 3. Coronary angiograms: a. Left main gives rise to LAD and the circumflex. Of note, there is some calcification present in the distal left main and proximal and mid LAD but this disease, while present, is not obstructive. b. LAD is a transapical vessel. It gives rise to a small first diagonal branch, a small second diagonal branch, a small third diagonal branch, a medium size 4th diagonal branch. No obstructive lesions are seen. c. Circumflex is a nondominant vessel. It gives rise to a medium first obtuse marginal branch, a large second obtuse marginal branch, a small third obtuse marginal branch, small fourth obtuse marginal branch and small fifth obtuse marginal branch. There is some calcification present particularly in the third OM, and in the mid portion of the circ after the the fourth OM but nothing obstructive is present. d. Right coronary artery gives rise to PDA and RV branch as well as atrial recurrent branch. No obstructive lesions are seen. IMPRESSIONS: 1. There is evidence of nonischemic cardiomyopathy. His ejection fraction by echocardiogram was 30%. 2. Normal left ventricular filling pressure (11). 3. Uncontrolled hypertension. 4. Unfortunately could not obtain cardiac output because I could not get into the pulmonary artery. PLAN: 1. Due to uncontrolled hypertension, will stop atenolol 50 mg daily. Start carvedilol 12.5 mg twice a day. Increase enalapril from 2.5 mg daily up to 5 mg daily, and follow up in two weeks to see how he is doing. He is dry and euvolemic on examination. Able to lay flat, but he is not currently on a diuretic. 2. In terms of atrial fibrillation, I think it is okay for him to take aspirin on his last day which would be October 05, 2014 and then on October 06, 2014, he can restart his warfarin. Thank you for the opportunity to evaluate the patient Rossy Huizar MD 10/04/14 7452 Brief History Mr. Gutierrez is a 81-year-old male with a past medical history of dementia, atrial fibrillation (on anticoagulation), BPH -with urinary obstruction who presented to the emergency department secondary to abdominal pain 1 day. Per patient's patient had been having an increase in his lower abdominal pressure with resultant pain for the last day or 2, has been drinking more water than usual though he reports going to the bathroom quite frequently she does not have a effective urinary output which results in urinary retention/ bladder distention and abdominal pain. He also endorses a persistent cough and dyspnea on exertion for which she was referred to cardiology on 01/16/[address] scan for a pulmonary nodule, this scan showed a trace right pleural effusion for which she was given the antibiotic doxycycline. Patient states he took 1 pill of the doxycycline developed GI problems and discontinued taking this medication. On 01/31/2017 he was seen in urgent care for shortness of breath, was diagnosed with reactive airway disease and given duo nebs & Qvar CXR showed atelectasis, cardiomegaly but no focal infiltrates. Today he denies fevers/chills, nausea/vomiting, chest pain though he does state a consistent shortness of breath with a slightly productive cough, abdominal pain , dysuria, urinary retention and urinary urgency. A comprehensive review of systems was conducted with the patient and found to be negative except as above in the history of present illness. In the ED patient demonstrated an approximate 0.95 L post void residual, received Lambert catheter with resultant extensive urinary output and relief of lower abdominal pain. An incidental finding of CT showed an extensive right sided pleural effusion which when compared to previous CT chest done 01/23/2017 shows a markedly increase in fluid accumulation. White count 11.2, sodium 1:30, glucose 188, lactic acid 2.4, INR 3.04 Hospital Course 81-year-old male admitted 02/04 came in because of abdominal pain/urinary obstruction has been having ongoing issues with dyspnea and cough. 02/05 frail elderly male who has been having difficulties for the last couple weeks and is more than his can manage at home. I am meeting this medically complex patient for the first time 02/05. It appears atrial fibrillation is controlled, he is frail and between CHF and large pleural effusion is causing fairly substantial dyspnea. Hopefully removing this effusion will correct this, and also help define the etiology of the effusion. Dyspnea with exertion- differential includes acute systolic CHF, versus uncontrolled A. fib, versus pneumonia with parapneumonic effusion, probable COPD ? Exacerbation? Secondary to tobacco abuse -Echo, BNP pending 02/05 -PT to ambulate patient and follow heart rate -Awaiting INR to drop for thoracentesis, pro calcitonin normal seems unlikely to be infection however continuing Augmentin/bronchodilators, prednisone 40 mg daily 02/05 -Stopping vancomycin as patient is MRSA negative and single blood culture positive seems unlikely to be more than contaminant given the overall picture. Acute Right Pleural effusion. Present on admission. Ongoing - CT scan in the ED showed incidental finding of markedly increase in right- sided pleural effusion - Initially thought to be Parapneumonic effusion, given single dose doxycycline approximately one week ago. Patient DC'd ABX secondary to adverse reaction - White count 11.2, pro calcitonin normal 02/04, afebrile - Given ceftriaxone, ciprofloxacin and cephalexin in ED - Sputum culture - Respiratory PCR pending - Thoracentesis ordered, pleural fluid analysis to determine etiology (Lights criteria) BPH with urinary retention. Ongoing - This was chief complaint of patient upon presentation to the ED - Symptoms resolved status post Lambert cath placement Chronic A. fib. with supra therapeutic INR. Present on admission. Ongoing - Hold home warfarin secondary to thoracentesis, med rec pending - Repeat INR HTN/Chronic Systolic heart failure. Ongoing-checking echocardiogram and BNP likely acute systolic CHF - Last echo 2014 shows EF 35-40% - Continue metoprolol - Continue home enalapril - Conservative fluid administration Nicotine dependence. Present on admission. Ongoing - Nicotine patch Complete medication reconciliation pending, patient has multiple medications per outpatient records that do not populate on inpatient med rec. - Acetaminophen as needed for mild pain/fever/headache - Bowel regimen as needed - Antiemetic as needed Patient admitted under inpatient status with expected length of stay > 2 midnights for severity of present symptoms, complexities of treatment plan and risk for adverse event . Exam Vital Signs (Last) Date Time Temp Pulse Resp B/P Pulse Ox O2 Delivery O2 Flow Rate FiO2 02/06/17 09:18 36.9 64 16 161/87 95 Room Air Exam Gen.- A+ O 2-3 no apparent distress. Frail thin male sitting up in bed Eyes- open conjunctiva clear, pupils equal nonicteric ENT- ears normal, nose normal Neck- supple/trach midline CVS-normal rate Lungs-regular, nonlabored normal rate GI-flat Musc- moving 4 no obvious deformity Neuro- cranial nerves II through XII intact to gross examination, nonfocal Skin- warm and dry, no rashes/lesions/wounds noted Psych- pleasant and appropriate, Test 02/03/17 22:05 02/04/17 02:25 02/04/17 04:20 02/04/17 07:37 Urine Color Yellow (YELLOW) Urine Appearance Clear (CLEAR,HAZY) Urine pH 6.0 (5.0-8.0) Urine Specific [place] 1.015 (1.003-1.035) Urine Protein Tracemg/dL (NEG,TRACE) Urine Glucose (UA) Negativemg/dL (NEGATIVE) Urine Ketones Tracemg/dL (NEGATIVE) Urine Occult Blood Small (NEGATIVE) Urine Nitrite Negative (NEGATIVE) Urine Bilirubin Negative (NEGATIVE) Urine Urobilinogen Normalmg/dL (NORMAL) Urine Leukocyte Esterase Negative (NEGATIVE) Urine RBC 11-50/hpf (0-2) Urine WBC 0-5/hpf (0-5) Urine Epithelial Cells Occasional/hpf (NONE-MOD) Urine Crystals None seen (NONE SEEN) Urine Bacteria None/hpf (NONE-FEW) Urine Hyaline Casts None/lpf (NONE) Urine Granular Casts None seen (NONE SEEN) Urine Waxy Casts None seen (NONE SEEN) Urine Red Blood Cell Casts None seen (NONE SEEN) Urine White Blood Cell Casts None seen (NONE SEEN) Urine Mucus None seen (None Seen) Urine Trichomonas None seen (NONE SEEN) Urine Yeast None (NONE SEEN) Urine Culture Reflexed Not indicated Procalcitonin 0.07ng/mL (0.00-0.08) White Blood Count 11.3th/mm3 (3.8-10.1) Red Blood Count 3.71mil/mm3 (4.40-5.80) Hemoglobin 11.0g/dL (13.8-17.2) Hematocrit 32.6% (41.0-50.0) Mean Corpuscular Volume 87.9fL (81-100) Mean Corpuscular Hemoglobin 29.6pg (27.0-35.0) Mean Corpuscular Hemoglobin Concent 33.7% (32.0-37.0) Red Cell Distribution Width 16.0% (12.3-15.4) Platelet Count 232bil/L (150-400) Neutrophils (%) (Auto) 82.2% (40-74) Lymphocytes (%) (Auto) 4.9% (14-46) Monocytes (%) (Auto) 12.2% (4-12) Eosinophils (%) (Auto) 0.1% (0-5) Basophils (%) (Auto) 0.1% (0-3) Lactic Acid Level 1.1mmol/L (0.4-2.0) Lactate Dehydrogenase 263U/L (100-190) Magnesium Level 2.1mg/dL (1.6-2.6) Total Bilirubin 0.3mg/dL (0.0-1.2) Aspartate Amino Transf (AST/SGOT) 44U/L (0-50) Alanine Aminotransferase (ALT/SGPT) 29U/L (0-44) Alkaline Phosphatase 95U/L (25-160) Total Protein 5.7g/dL (6.4-8.4) Albumin 3.2g/dL (3.4-5.0) Test 02/05/17 07:30 02/06/17 03:15 Pro-B-Type Natriuretic Peptide 4307pg/mL (0-486) Prothrombin Time 19.4sec (8.1-12.5) Prothromb Time International Ratio 1.79ratio Sodium Level 135mEq/L (134-144) Potassium Level 4.3mEq/L (3.5-5.2) Chloride Level 99mEq/L (97-108) Carbon Dioxide Level 24mmol/L (18-29) Blood Urea Nitrogen 22mg/dL (8-27) Creatinine 1.03mg/dL (0.76-1.27) Estimat Glomerular Filtration Rate 74mL/min (>59) Glucose Level 169mg/dL (60-99) Calcium Level 9.1mg/dL (8.5-10.1) Hold Damon Top Tube Received (Received) Microbiology Results EKG personally reviewed 02/04 on 02/06 Rate 65, QTC is read as 490 ms I am sure it is much less. Afib/flut and V-paced complexes . Left bundle branch block . When compared with ECG of 04-Aug-2015 6:07:23, . No significant change Discharge Medications Discharge Medications Amoxicillin/Clav K 875-125 mg (Amoxicillin/Clav K 875-125 mg) 875 Mg Tab 1 TAB PO BID Prescribed by: REMIGIO FOX MD Donepezil (Donepezil) 10 Mg Tablet 10 MG PO HS (Reported) Enalapril Maleate (Enalapril Maleate) 10 Mg Tablet 10 MG PO DAILY Prescribed by: REMIGIO FOX MD Lactobacillus Acidophilus (Acidophilus) 1 Each Capsule 1 EACH PO DAILY Prescribed by: REMIGIO FOX MD Memantine HCl (Namenda-XR) 21 Mg Cap.spr.24 21 MG PO DAILY (Reported) Metoprolol Succinate ER (Metoprolol Succinate ER) 25 Mg Tablet 25 MG PO BID Prescribed by: CAMELIA MEAD MD Nicotine 7 mg/24 hr Patch (Nicotine 7 mg/24 hr Patch) 1 Each Patch.td24 1 PATCH TOPICAL Q24H Prescribed by: REMIGIO FOX MD Prednisone (Deltasone) 20 Mg Tablet 40 MG PO DAILY Prescribed by: REMIGIO FOX MD Tamsulosin (Flomax) 0.4 Mg Capsule 0.4 MG PO DAILY Prescribed by: REMIGIO FOX MD Warfarin Sodium (Warfarin Sodium) 5 Mg Tablet 5 MG PO ,,Fr,Sa,Spears (Reported) Warfarin Sodium (Warfarin Sodium) 7.5 Mg Tablet 7.5 MG PO Mo,Th (Reported) As needed Acetaminophen (Acetaminophen) 325 Mg Tablet 500-1,000 MG PO Q4H PRN PRN For Fever (Reported) Albuterol HFA (Proair HFA) 8.5 Gm Hfa.aer.ad 2 PUFFS INHALATION Q4H PRN PRN For Shortness of Breath Prescribed by: REMIGIO FOX MD Polyethylene Glycol 3350 (Miralax) 17 Gm Powd.pack 17 GM PO DAILY PRN PRN For Constipation Prescribed by: CAMELIA MEAD MD Followup Plan Disposition: Going home, declined home health Discharge Diet: Low fat, Low Sodium Discharge Activity: No restrictions Follow-up Provider: Charanjit Coleman MD Follow-up with PCP in: 1 week (within one week for blood pressure/CHF) Provider: Maira Dominguez MD Follow-up in: 1 week (call for follow-up JOSE) Time spent Greater than 30 minutes copies to: Charanjit Coleman MD; Maira Dominguez MD, Andris E MD Feb 06, 2017 11:27
[2017-02-06] MEDS ORDERED: ENAL10TA PO (11:33)
[2017-02-06] MEDS ORDERED: TAMS0.4C98 PO (11:33)
[2017-02-06] MEDS ORDERED: NIC7 TOPICAL (11:33)
[2017-02-06] MEDS ORDERED: LACT1CAP13 PO (11:33)
[2017-02-06] MEDS ORDERED: PRED-508 PO (11:33)
[2017-02-06] MEDS ORDERED: AGM875T PO (11:33)
[2017-02-06] MEDS ORDERED: ALBU8.5H2 INHALATION (11:34)
--- NOTE | 2017-02-06 13:54 | DRSVH ---
CORRECTED ACCOUNT AND ACCESSION/PLACER NUMBERS ON 02/12/17 PROCEDURE: X-RAY CHEST ONE VIEW ([id number]) INDICATIONS: 81-year-old male status post thoracentesis. TECHNIQUE: One view of the chest was acquired. COMPARISON: [facility], CR, XR CHEST 2VW, 01/31/2017, 13:01. [facility], CR , XR CHEST 2VW, 08/04/2015, 8:43. [facility], CR, XR CHEST 1VW (PORTABLE), 08/03/2015, 1 2:11. FINDINGS: Surgical changes and devices: Left chest wall single lead pacemaker is again noted. Lungs and pleura: There is trace residual right basal pleural effusion. No pneumothorax. No acute air space opacities. Mediastinum: Mediastinal contours appear normal. Heart size is normal. There is aortic atheroscler osis. Bones and chest wall: No suspicious bony lesions. Overlying soft tissues appear unremarkable. IMPRESSION: Trace residual right basal pleural effusion after thoracentesis. No pneumothorax. Dictated by: Denny Ragsdale M.D. on 02/06/2017 at 13:51 Approved by: Denny Ragsdale M.D. on 02/06/2017 at 13:53
--- NOTE | 2017-02-06 14:02 | ABG ---
DateTimeAnalyzed 13:55:00 -_ pH ____7.433 - pCO2 ___41.8__ -mmHg pO2 172 -mmHg HCO3- ___27.4__ -mmol/L ABE ____3.5__ -mmol/L tHb ____0.03_ -g/dL FIO2 ___21.0__ -% Drawn By as - Date/Time Notified____ 14:01:00 -_ Notified By ams - Notified Whom RN - B 759 -mmHg tO2 ____0.5__ -Vol% Asael test N/A -
--- NOTE | 2017-02-06 14:25 | DRSVH ---
PROCEDURE: US GUIDED THORACENTESIS BY REFERRING PHYSICIAN ([id number]) INDICATIONS: Pleural Effusion TECHNIQUE: The indications, alternatives, benefits, risks, and complications of the procedure were explained to the patient. Written informed consent was obtained and placed in the chart. The chest was examined sonographically, and an appropriate site was chosen for thoracentesis. The skin was prepared and piper ped in the usual sterile fashion, and 1% lidocaine was infiltrated from the skin down through the ple ural surface. A 19-gauge catheter-covered needle was then introduced into the pleural space, the cat heter was advanced and the needle was withdrawn, and thereafter pleural fluid was aspirated. The cat heter was then removed and a dressing was applied. COMPARISON: [facility], CR, XR CHEST 1VW, 02/06/2017, 13:47. FINDINGS: Access site: Right hemithorax. Needle: One-Step centesis catheter with introducer needle. Fluid volume and description: 120 cc clear pleural fluid. Fluid sent for diagnostic testing: Fluid sent for cytology, multiple chemistry panels and therapeuti c drainage. Medications: 1% lidocaine for local anaesthesia. Complications: None; post-procedural chest radiograph is pending to assess for pneumothorax. IMPRESSION: Successful ultrasound-guided thoracentesis. Dictated by: Luis ASHFORD Interpreted: Lonnie Harley MD on 02/06/2017 at 14:22 Transcribed by: JANUARY on 02/06/2017 at 14:24 Approved by: Lonnie Harley M.D. on 02/06/2017 at 16:35
--- NOTE | 2017-02-06 14:52 | PCM.DC.MED ---
Discharge Summary Date of Service Feb 06, 2017 Dates of Hospitalization Date of Hospital Admission February 04, 2017 at 02:24 Date of Discharge: Feb 06, 2017 Providers: Admitting Physician: Fredi Loo MD Primary Care Physician: Charanjit Coleman MD Attending Physician: Fredi Loo MD Diagnosis at Time of Discharge Diagnosis at Time of Discharge Urinary retention, dyspnea/right lung consolidation with small pleural effusion , weakness, HTN, CHF acute/chronic Consultations None Procedures XRay, CTs & MRIs CT abdomen and pelvis, [place] read Impression: No small bowel obstruction Appendix not identified and may be surgically absent Diverticulosis with no evidence of diverticulitis. Enlarged and heterogenous prostate gland may be secondary to prostate gland hypertrophy versus neoplasm. Followup is recommended. no evidence of obstructive uropathy Status post cholecystectomy Hepatomegaly with cirrhotic liver changes Abundant retroperitoneal fat may be secondary to cortical steroid usage Right pleural effusion with adjacent atelectasis Transmitted to the ED by Mundo Bowman MD at 0113 ECG 12 Lead EKG personally reviewed 02/04 on 02/06 Rate 65, QTC is read as 490 ms I am sure it is much less. Afib/flut and V-paced complexes . Left bundle branch block . When compared with ECG of 04-Aug-2015 6:07:23, . No significant change Cardiac Echo Impression Echocardiogram Report: Isamar Abel on 02/05/2017 05:40 The left ventricle is mildly dilated. This is increased compared to the previous study (LVIDd increased from 5.1 to 5.9 cm). The ejection fraction is estimated to be 35-40% (No significant change). The right ventricle is mildly dilated. There is a pacemaker lead in the right ventricle (New). The right ventricular systolic function is normal. This is improved compared to the previous study. There is severe biatrial enlargement. Both atria have remained unchanged in size since the prior echo exam. There is mild to moderate mitral regurgitation. Compared to the prior echo study, there has been no change in the severity of mitral regurgitation. There is moderate to severe tricuspid regurgitation. Compared to the prior echo exam, there has been no change in TR severity. The right ventricular systolic pressure is estimated at 51 mmHg assuming a right atrial pressure of 8 mm Hg. Compared to the prior echo exam, there has been an increase in the severity of pulmonary hypertension. There is a small right-sided pleural effusion (New). Reading Physician:PM Invasive Procedures Cardiac cath -Rossy Huizar MD 10/04/14 8686 1. There is evidence of nonischemic cardiomyopathy. His ejection fraction by echocardiogram was 30%. 2. Normal left ventricular filling pressure (11). 3. Uncontrolled hypertension. 4. Unfortunately could not obtain cardiac output because I could not get into the pulmonary artery. PLAN: 1. Due to uncontrolled hypertension, will stop atenolol 50 mg daily. Start carvedilol 12.5 mg twice a day. Increase enalapril from 2.5 mg daily up to 5 mg daily, and follow up in two weeks to see how he is doing. He is dry and euvolemic on examination. Able to lay flat, but he is not currently on a diuretic. 2. In terms of atrial fibrillation, I think it is okay for him to take aspirin on his last day which would be October 05, 2014 and then on October 06, 2014, he can restart his warfarin. Thank you for the opportunity to evaluate the patient. Rossy Huizar MD 10/04/14 6600 Other Diagnostics US GUIDED THORACENTESIS: Lonnie Harley MD on 02/06/2017 at 14:22 Access site: Right hemithorax. Needle: One-Step centesis catheter with introducer needle. Fluid volume and description: 120 cc clear pleural fluid. Fluid sent for diagnostic testing: Fluid sent for cytology, multiple chemistry panels and therapeutic drainage. Medications: 1% lidocaine for local anaesthesia. Complications: None; post-procedural chest radiograph is pending to assess for pneumothorax. IMPRESSION: Successful ultrasound-guided thoracentesis. Dictated by: Luis Caldwell [facility] Interpreted: Lonnie Harley MD on 02/06/2017 at 14:22 Brief History 81-year-old male with a past medical history of dementia, atrial fibrillation ( on anticoagulation), BPH -with urinary obstruction who presented to the emergency department secondary to abdominal pain 1 day. Per patient's patient had been having an increase in his lower abdominal pressure with resultant pain for the last day or 2, has been drinking more water than usual though he reports going to the bathroom quite frequently she does not have a effective urinary output which results in urinary retention/bladder distention and abdominal pain. He also endorses a persistent cough and dyspnea on exertion for which she was referred to cardiology on 01/16/[address] scan for a pulmonary nodule, this scan showed a trace right pleural effusion for which she was given the antibiotic doxycycline. Patient states he took 1 pill of the doxycycline developed GI problems and discontinued taking this medication. On 01/31/2017 he was seen in urgent care for shortness of breath, was diagnosed with reactive airway disease and given duo nebs & Qvar CXR showed atelectasis, cardiomegaly but no focal infiltrates. Today he denies fevers/chills, nausea/vomiting, chest pain though he does state a consistent shortness of breath with a slightly productive cough, abdominal pain, dysuria, urinary retention and urinary urgency. A comprehensive review of systems was conducted with the patient and found to be negative except as above in the history of present illness. In the ED patient demonstrated an approximate 0.95 L post void residual, received Lambert catheter with resultant extensive urinary output and relief of lower abdominal pain. An incidental finding of CT showed an extensive right sided pleural effusion which when compared to previous CT chest done 01/23/2017 shows a markedly increase in fluid accumulation. White count 11.2, sodium 1:30, glucose 188, lactic acid 2.4, INR 3.04 Hospital Course 81-year-old male admitted 02/04 came in because of abdominal pain/urinary obstruction has been having ongoing issues with dyspnea and cough. 02/05 frail elderly male who has been having difficulties for the last couple weeks and is more than his can manage at home. I am meeting this medically complex patient for the first time 02/05. It appears atrial fibrillation is controlled, he is frail and between CHF and large pleural effusion is causing fairly substantial dyspnea. Hopefully removing this effusion will correct this, and also help define the etiology of the effusion. 02/06 patient has been reportedly ambulating the hallway he is back on room air. And has elected to keep the Lambert catheter until they can see the urologist rather than doing a voiding trial here. They have declined home health as he is doing pretty well. He had a thoracentesis done today just prior to discharge the results of which are still pending but they are not going to change the management which includes finishing a course of antibiotics for pneumonia. Resume his warfarin on discharge echocardiogram unchanged from prior. Blood pressure was little bit SO we are resuming from 5 mg enalapril to 10 mg but he needs follow-up for the blood pressure. I would have a low tolerance to starting this patient on furosemide if he is dyspneic, and bronchodilators and possibly even prednisone. Since he has not and he is on room air and did not pursue any of those avenues during this hospitalization prior to discharge. Dyspnea with exertion- differential includes acute systolic CHF, uncontrolled A. fib, pneumonia with parapneumonic effusion, probable COPD? Exacerbation? Secondary to tobacco abuse -Echo unchanged 02/05, BNP 4307 02/05 -PT to ambulate patient and follow heart rate -Awaiting INR to drop for thoracentesis, pro calcitonin normal seems unlikely to be infection however continuing Augmentin/bronchodilators, prednisone 40 mg daily 02/05 -Stopping vancomycin as patient is MRSA negative and single blood culture positive seems unlikely to be more than contaminant given the overall picture. Acute Right Pleural effusion. Present on admission. Ongoing - CT scan in the ED showed incidental finding of markedly increase in right- sided pleural effusion - Initially thought to be Parapneumonic effusion, given single dose doxycycline approximately one week ago. Patient DC'd ABX secondary to adverse reaction - White count 11.2, pro calcitonin normal 02/04, afebrile - Given ceftriaxone, ciprofloxacin and cephalexin in ED - Sputum culture - Respiratory PCR pending - Thoracentesis ordered, pleural fluid analysis to determine etiology (Lights criteria) BPH with urinary retention. Ongoing - This was chief complaint of patient upon presentation to the ED - Symptoms resolved status post Lambert cath placement Chronic A. fib. with supra therapeutic INR. Present on admission. Ongoing - Hold home warfarin secondary to thoracentesis, med rec pending - Repeat INR HTN/Chronic Systolic heart failure. Ongoing-checking echocardiogram and BNP likely acute systolic CHF - Last echo 2014 shows EF 35-40%, repeat 02/05 unchanged - Continue metoprolol - Continue home enalapril - Conservative fluid administration Nicotine dependence. Present on admission. Ongoing - Nicotine patch Complete medication reconciliation pending, patient has multiple medications per outpatient records that do not populate on inpatient med rec. - Acetaminophen as needed for mild pain/fever/headache - Bowel regimen as needed - Antiemetic as needed Patient admitted under inpatient status with expected length of stay > 2 midnights for severity of present symptoms, complexities of treatment plan and risk for adverse event . Exam Vital Signs (Last) Date Time Temp Pulse Resp B/P Pulse Ox O2 Delivery O2 Flow Rate FiO2 02/06/17 09:18 36.9 64 16 161/87 95 Room Air Exam Gen.- A+ O 2-3 no apparent distress. Frail thin male sitting up in bed Eyes- open conjunctiva clear, pupils equal nonicteric ENT- ears normal, nose normal Neck- supple/trach midline CVS-normal rate Lungs regular, nonlabored GI-flat Musc- moving 4 no obvious deformity Neuro- cranial nerves II through XII intact to gross examination, nonfocal Skin- warm and dry, no rashes/lesions/wounds noted Psych- pleasant and appropriate, Test 02/03/17 22:05 02/04/17 02:25 02/04/17 04:20 02/04/17 07:37 Urine Color Yellow (YELLOW) Urine Appearance Clear (CLEAR,HAZY) Urine pH 6.0 (5.0-8.0) Urine Specific [place] 1.015 (1.003-1.035) Urine Protein Tracemg/dL (NEG,TRACE) Urine Glucose (UA) Negativemg/dL (NEGATIVE) Urine Ketones Tracemg/dL (NEGATIVE) Urine Occult Blood Small (NEGATIVE) Urine Nitrite Negative (NEGATIVE) Urine Bilirubin Negative (NEGATIVE) Urine Urobilinogen Normalmg/dL (NORMAL) Urine Leukocyte Esterase Negative (NEGATIVE) Urine RBC 11-50/hpf (0-2) Urine WBC 0-5/hpf (0-5) Urine Epithelial Cells Occasional/hpf (NONE-MOD) Urine Crystals None seen (NONE SEEN) Urine Bacteria None/hpf (NONE-FEW) Urine Hyaline Casts None/lpf (NONE) Urine Granular Casts None seen (NONE SEEN) Urine Waxy Casts None seen (NONE SEEN) Urine Red Blood Cell Casts None seen (NONE SEEN) Urine White Blood Cell Casts None seen (NONE SEEN) Urine Mucus None seen (None Seen) Urine Trichomonas None seen (NONE SEEN) Urine Yeast None (NONE SEEN) Urine Culture Reflexed Not indicated Procalcitonin 0.07ng/mL (0.00-0.08) White Blood Count 11.3th/mm3 (3.8-10.1) Red Blood Count 3.71mil/mm3 (4.40-5.80) Hemoglobin 11.0g/dL (13.8-17.2) Hematocrit 32.6% (41.0-50.0) Mean Corpuscular Volume 87.9fL (81-100) Mean Corpuscular Hemoglobin 29.6pg (27.0-35.0) Mean Corpuscular Hemoglobin Concent 33.7% (32.0-37.0) Red Cell Distribution Width 16.0% (12.3-15.4) Platelet Count 232bil/L (150-400) Neutrophils (%) (Auto) 82.2% (40-74) Lymphocytes (%) (Auto) 4.9% (14-46) Monocytes (%) (Auto) 12.2% (4-12) Eosinophils (%) (Auto) 0.1% (0-5) Basophils (%) (Auto) 0.1% (0-3) Lactic Acid Level 1.1mmol/L (0.4-2.0) Lactate Dehydrogenase 263U/L (100-190) Magnesium Level 2.1mg/dL (1.6-2.6) Total Bilirubin 0.3mg/dL (0.0-1.2) Aspartate Amino Transf (AST/SGOT) 44U/L (0-50) Alanine Aminotransferase (ALT/SGPT) 29U/L (0-44) Alkaline Phosphatase 95U/L (25-160) Total Protein 5.7g/dL (6.4-8.4) Albumin 3.2g/dL (3.4-5.0) Test 02/05/17 07:30 02/06/17 03:15 Pro-B-Type Natriuretic Peptide 4307pg/mL (0-486) Prothrombin Time 19.4sec (8.1-12.5) Prothromb Time International Ratio 1.79ratio Sodium Level 135mEq/L (134-144) Potassium Level 4.3mEq/L (3.5-5.2) Chloride Level 99mEq/L (97-108) Carbon Dioxide Level 24mmol/L (18-29) Blood Urea Nitrogen 22mg/dL (8-27) Creatinine 1.03mg/dL (0.76-1.27) Estimat Glomerular Filtration Rate 74mL/min (>59) Glucose Level 169mg/dL (60-99) Calcium Level 9.1mg/dL (8.5-10.1) Hold Damon Top Tube Received (Received) Microbiology Results Respiratory viral PCR negative, culture 1 of 2 bottles positive for staph type unidentified, MRSA screen negative Discharge Medications Discharge Medications Amoxicillin/Clav K 875-125 mg (Amoxicillin/Clav K 875-125 mg) 875 Mg Tab 1 TAB PO BID Prescribed by: REMIGIO FOX MD Donepezil (Donepezil) 10 Mg Tablet 10 MG PO HS (Reported) Enalapril Maleate (Enalapril Maleate) 10 Mg Tablet 10 MG PO DAILY Prescribed by: REMIGIO FOX MD Lactobacillus Acidophilus (Acidophilus) 1 Each Capsule 1 EACH PO DAILY Prescribed by: REMIGIO FOX MD Memantine HCl (Namenda-XR) 21 Mg Cap.spr.24 21 MG PO DAILY (Reported) Metoprolol Succinate ER (Metoprolol Succinate ER) 25 Mg Tablet 25 MG PO BID Prescribed by: CAMELIA MEAD MD Nicotine 7 mg/24 hr Patch (Nicotine 7 mg/24 hr Patch) 1 Each Patch.td24 1 PATCH TOPICAL Q24H Prescribed by: REMIGIO FOX MD Prednisone (Deltasone) 20 Mg Tablet 40 MG PO DAILY Prescribed by: REMIGIO FOX MD Tamsulosin (Flomax) 0.4 Mg Capsule 0.4 MG PO DAILY Prescribed by: REMIGIO FOX MD Warfarin Sodium (Warfarin Sodium) 5 Mg Tablet 5 MG PO ,,Fr,Sa,Spears (Reported) Warfarin Sodium (Warfarin Sodium) 7.5 Mg Tablet 7.5 MG PO , (Reported) As needed Acetaminophen (Acetaminophen) 325 Mg Tablet 500-1,000 MG PO Q4H PRN PRN For Fever (Reported) Albuterol HFA (Proair HFA) 8.5 Gm Hfa.aer.ad 2 PUFFS INHALATION Q4H PRN PRN For Shortness of Breath Prescribed by: REMIGIO FOX MD Polyethylene Glycol 3350 (Miralax) 17 Gm Powd.pack 17 GM PO DAILY PRN PRN For Constipation Prescribed by: CAMELIA MEAD MD Followup Plan Disposition: Home Follow-up plan Close follow-up with primary care provider and urology. Discharge Diet: Low fat, Low Sodium Discharge Activity: No restrictions Follow-up Provider: Charanjit Coleman MD Follow-up with PCP in: 1 week (within one week for blood pressure/CHF) Provider: Maira Dominguez MD Follow-up in: 1 week (call for follow-up JOSE) Time spent Greater than 30 minutes Attending Statement 1 of 2 blood cultures came back with staph it is probably staph epidermidis but as yet not identified. 2 more sets were drawn I have discussed this with the patient and his and they agree that it is okay if we call them to come back if he should come back positive for staph aureus or other organism that requires long-term IV antibiotics and further workup. Results of thoracentesis are still pending as well. copies to: Charanjit Coleman MD; Maira Dominguez MD, Andris E MD Feb 06, 2017 14:52
[2017-02-06 15:39] LABS: BFWBC 663 /mm3
[2017-02-06 15:40] LABS: MONOCYTES,BODY FLUID 21 %; OTHER CELLS,BODY FLUID 26
[2017-02-06 15:41] LABS: TOTAL PROTEIN,PLEURAL FLUID 1.7 g/dL
[2017-02-06] MEDS ORDERED: Vancomycin Serum Trough XX ONE (20:00)
--- NOTE | 2017-02-11 13:29 | PATH ---
SURGICAL PATHOLOGY Attending Physician:Kameron Laboy CASE STATUS: Signed Out PATIENT NAME: NICANOR LEWIS PID: [id number] : 1935 DATE COLLECTED:02/06/2017 00:00 SPECIMEN: Right Pleural fluid CLINICAL HISTORY: Right Pleural Fluid No ICD-10 code given FINAL DIAGNOSIS: RIGHT PLEURAL FLUID CYTOLOGY SPECIMEN (CELL BLOCK, THINPREP, AND CYTOSPIN): NEGATIVE FOR MALIGNANT CELLS (SEE COMMENT). ICD10 J90 NOTE: The cells present here are primarily reactive-appearing mesothelial cells with some lymphocytes. Some of the mesothelial cells are quite large with prominent nucleoli. For this reason, immunohistochemistry is performed in order to rule out the possibility that these may represent true epithelial cells. The antibodies utilized are those against BerEp4 and Calretinin. The BerEp4 is negative, the Calretinin is positive, which supports the diagnosis of reactive mesothelial calls and benign pleural fluid. This test was developed and its performance characteristics determined by [facility]. It has not been cleared or approved by the U. S. Food and Drug Administration. The FDA has determined that such clearance or approval is not necessary. This test is used for clinical purposes. It should not be regarded as investigational or for research. GROSS DESCRIPTION: Received fresh on 02/09/2017 is approximately 50 cc of cloudy orange fluid. Prepared are one cell block, one cytospin, and one ThinPrep slide. vo/hk ICD-9 CODES: CPT CODES: 1: 01072, 10933, 53308, 62631, 63452 Electronically Signed Out Nicanor Cervantes MD [facility] [address], [place] [address] Technical component performed at [facility], [address], [place], [address]
== END 2017-02-06 15:57 | disposition home or self-care (01) | DRG 292 ==
LOC: SED 20:32 → MPC 02-04 02:24
PROVIDERS: ADMIT Hospitalist; ATTEND Hospitalist
PROC: 0W9930Z Drainage of Right Pleural Cavity with Drainage Device, Percutaneous Approach (ICD-10-PCS; principal; 2017-02-06)
PROC: 4A033R1 Measurement of Arterial Saturation, Peripheral, Percutaneous Approach (ICD-10-PCS; 2017-02-06)
DX: I50.23 Acute on chronic systolic (congestive) heart failure (principal); J90 Pleural effusion, not elsewhere classified; E87.2 Acidosis; N40.1 Benign prostatic hyperplasia with lower urinary tract symptoms; R33.8 Other retention of urine; Z79.01 Long term (current) use of anticoagulants; I25.10 Atherosclerotic heart disease of native coronary artery without angina pectoris; E78.5 Hyperlipidemia, unspecified; F17.210 Nicotine dependence, cigarettes, uncomplicated; I48.2 Chronic atrial fibrillation; I10 Essential (primary) hypertension

== ENCOUNTER → 2017-03-30 | Day surgery (SDC) | payer MEDICARE ==
--- NOTE | 2017-03-25 07:47 | PCM.ANEPRE ---
Anesthesia Pre-Op Review Reason for Review: EF 35-40%, Chronic A fib with pacemaker, Recent thoracetesis Anesthesia Recommendations: Proceed with Procedure Additional Comments 81 yo M scheduled for cysto, TURP with Dr. Posey for BPH. History of cardiomyopathy (EF 35-40%) with pulmonary hypertension, mild mitral regurgitation, moderate/severe TR on echo from 02/05/2017. Chronic a.fib on coumadin with pacemaker. Dementia. Had pleural effusion (thoracentesis 2016) during admission for urinary retention, dyspnea, and CHF exacerbation. Follow-up chest x-ray 02/13/2017 showed resolution of pleural effusion. Pacemaker recommendations received (apply magnet during cautery, no reprogramming needed). Holding coumadin 7 days. Per NSQIP risk calculator patient has above average risk for complications (13% risk for serious complications) but is likely as optimized as possible for this procedure. Will need re-evaluation on DOS by anesthesiologist to confirm cardiopulmonary status is stable and discussion of risks. DOS INR. Chart Reviewed by: MD Marga Pickering Jeffrey L MD Mar 25, 2017 07:47
[~2017-03-30] VITALS: Ht 182.9 cm; Wt 74.5 kg
[~2017-03-30] MED LIST changes: +ACET325T51 PO; +ALBU8.5H2 INHALATION; -Acetaminophen PO; -CEPH-512 PO; +DONE10TA42 PO; +Dexamethasone 4 mg/mL Inj IVPUSH PRN; +ENAL10TA PO; -ENAL5TAB PO; +EPHEDrine Sulfate 50 mg/mL Inj IVPUSH PRN; +EPHEDrine/NS 5 mg/mL 5 mL Syringe ONE; -ERYT1OIN7 BOTH_EYES; +FURO-128 PO; -HYDROcodone-APAP 5-325 PO; +HYDROcodone-APAP 5-325 mg Tablet PO PRN; +HYDROmorphone 1 mg/mL Inj IVPUSH PRN; +Lactated Ringer's 1,000 ML IV ONE; +Lactated Ringer's 1,000 ML IV SCH; +Lactated Ringer's 500 ML IV PRN; +Levofloxacin 500 mg/100 mL D5W IV ONE; +MEMA21CA PO; +MetoCLOpramide 5 mg/mL 2 mL Inj IVPUSH PRN; -NIC7 TOPICAL; +Ondansetron 2 mg/mL 2 mL Inj IVPUSH PRN; +Ondansetron 2 mg/mL 2 mL Inj ONE; +Phenylephrine 10,000 mCg/mL Inj IVPUSH PRN; +Propofol 10,000 mCg/mL 20 mL Inj ONE; +TAMS0.4C98 PO; -WARF5TAB PO; +WARF5TAB7 PO; +WARF7.5T4 PO; +fentaNYL-PF 50 mCg/mL 2 mL Inj IVPUSH PRN; +fentaNYL-PF 50 mCg/mL 2 mL Inj ONE; +levoFLOXacin 500 mg/100 mL D5W Premix IV ONE
[2017-03-30 12:50] VITALS: BP 132/72; PULSE 60; RESP 18; O2SAT 100
[2017-03-30 14:11] LABS: INR 1.01 ratio
--- NOTE | 2017-03-30 15:37 | PCM.HPANE ---
Patient Data Surgeon Admitting Provider: Attending Provider:Samantha Posey MD Primary Care Physician:Charanjit Coleman MD Other Provider:[facility] Reason for Visit Urinary Retention URINARY RETENTION Ht/WT & BMI Height (Feet): 6 Height (Inches): 0 Weight (Kilograms): 77.11 Body Mass Index 23.00 Allergies Coded Allergies: Sulfa (Sulfonamide Antibiotics) (Verified Allergy, Intermediate, RASH, ) doxycycline (Verified Adverse Reaction, Mild, 03/30/17) Past Anesthesia History Anesthesia History: Denies:: Abnormal Airway, Anesthesia Reactions, Difficult Intubation, Fam Anesthesia Reaction, Fam Malignant Hypertherm, Malignant Hyperthermia Diabetes History Hx Diabetes?: No MRSA MRSA: No Medications Blood Thinner: Coumadin Last Dose Blood Thinner: Mar 23, 2017 Hypertension Medication: Yes (Metoprolol) Active Scripts Albuterol HFA (Proair HFA)8.5 Gm Hfa.aer.ad2 Puffs INHALATION Q4H PRN For Shortness of Breath #1 INHALER Ref 3 Prov:Kamar Bhandari MD 02/06/17 Enalapril Maleate 10 Mg Cgeonx24 Mg PO DAILY #30 TABLET Ref 3 Prov:Kamar Bhandari MD 02/06/17 Tamsulosin (Flomax)0.4 Mg Capsule0.4 Mg PO DAILY #30 CAPSULE Ref 3 Prov:Kamar Bhandari MD 02/06/17 Polyethylene Glycol 3350 (Miralax)17 Gm Powd.pack17 Gm PO DAILY PRN For Constipation #20 Prov:Yesy Ordoñez MD 08/04/15 Metoprolol Succinate ER 25 Mg Mdbioj23 Mg PO BID 30 Days Prov:Yesy Ordoñez MD 08/04/15 Reported Medications Furosemide (Lasix)40 Mg [id number] Mg PO DAILY 30 Days Ref 0 03/23/17 Memantine HCl (Namenda-XR)21 Mg Cap.spr.2421 Mg PO HS 30 Days Ref 0 02/04/17 Donepezil 10 Mg Kddsjw02 Mg PO DAILY Ref 0 02/04/17 Acetaminophen 325 Mg Sobujx242-3,000 Mg PO Q4H PRN For Fever Ref 0 02/04/17 Warfarin Sodium 7.5 Mg Tablet7.5 Mg PO , 30 Days Ref 0 02/04/17 Warfarin Sodium 5 Mg Tablet5 Mg PO Tu,We,Fr,Sa,Spears 30 Days Ref 0 02/04/17 Discontinued Scripts Lactobacillus Acidophilus (Acidophilus)1 Each Capsule1 Each PO DAILY #30 CAPSULE Prov:Kamar Bhandari MD 02/06/17 Prednisone (Deltasone)20 Mg [id number] Mg PO DAILY #10 TABLET Prov:Kamar Bhandari MD 02/06/17 Nicotine 7 mg/24 hr Patch 1 Each Patch.td241 Patch TOPICAL Q24H #14 PATCH Prov:Kamar Bhandari MD 02/06/17 Amoxicillin/Clav K 875-125 mg 875 Mg Tab1 Tab PO BID #14 TAB Prov:Kamar Bhandari MD 02/06/17 History History of ENT Problems?: No HEENT History: Denies:: Abnormal Airway Cataracts Difficult Intubation Dysphagia Glaucoma Hearing Problem Sinus Problem TMJ Denture Type: None Teeth Condition: Within Normal Limits Hx of Heart Problems?: Yes Cardiovascular History: Positive for:: Atrial Fibrillation Congestive Heart Failure Hypertension Irregular Heartbeat (Afib) Pacemaker Denies:: AICD Cardiac Surgery Chest Pain Coronary Artery Disease Edema Heart Murmur Peripheral Vascular Rheumatic Fever Thrombophlebitis Valvular Heart Disease Hx of Respiratory Problem?: Yes Respiratory History: Positive for:: Pneumonia (January 2017) Use of Inhalers / NEBS Denies:: Asthma COPD Chest Surgery Cough Dyspnea Emphysema Hemoptysis Oxygen Administration Pulmonary Embolism Tuberculosis Use of C-PAP Machine Hx Neurologic Problems?: Yes Neurological History: Positive for:: Dementia (mild) Dizziness Denies:: Alzheimer's Disease CVA Headaches Parkinson's Disease Seizures Hx of GI Problems?: Yes Hx of Problems?: Yes Genitourinary History: Denies:: HX of Hemodialysis Kidney Stones Urinary Tract Infection HX of Peritoneal Dialysis: No Male Hx: Positive for:: Prostate Problems Denies:: Scrotal Mass Testicular Surgery Skin History: Denies:: History Skin Disorders? (Skin Cancer) Pressure Ulcers Hx Musculoskeletal Problems?: No Musculoskeletal History: Denies:: Back Injury Degenerative Joint Fibromyalgia Joint Replacement Musculoskeletal Trauma Myasthenia Gravis Osteoarthritis Rheumatoid Arthritis Systemic Lupus Hx of Psycho/Social Problems?: No Psycho Social History: Denies:: Anxiety Bipolar Disorder Hx Depression Suicide Attempt Hx Surgeries?: Yes Hx Any Other Health Problems?: Yes Other History: Positive for:: Cancer (skin) Hospitalization Denies:: Endocrine Disease Thyroid Disease History Blood Transfusions: Positive for:: Accept Blood Products? Denies:: Blood Transfuse Reaction Blood Transfusions Hx Diabetes: No Hx Alcohol Use: NoHx Substance Use: No Smoking Status: Current Every Day Smoker Have You Smoked inLast 12 mo: No Stop/Bang S-Snoring: Do You Snore Loudly: Yes T-Tired: feel tired, fatigued: Yes O-Obsered: Observed not breath: No P-Blood Pressure: treated: Yes B- Body Mass Index > 35 kg/m2: No A- Age over 50: Yes N- Neck Large Circumference: No G- Gender Male: Yes [place] Total Score: 5 Risk Assessment Category Category 1A: Patient has history of documented sleep apnea, and HAS NOT received any narcotic, sedative or anesthesia administration during this stay. Category 1B: Patient has history of documented sleep apnea, and HAS received any narcotic , sedative or anesthesia administration during this stay Category 2: Patient has SUSPECTED Obstructive Sleep Apnea, and HAS received any narcotic , sedative or anesthesia administration during this stay. Category 3: Patient has SUSPECTED Obstructive Sleep Apnea and HAS NOT received narcotic, sedative or anesthesia administration during this stay. Category 4: Outpatient in Procedural Areas with known sleep apnea or who screen positive for High Risk via the STOP/BANG questionnaire. Exam Exam General Appearance: Alert, Oriented X3, Cooperative, No Acute Distress HEENT/AIRWAY: MP 2 Lungs: Clear to Auscultation Heart: Exam Unremarkable Plan Impression Patient chart reviewed, patient interviewed and anesthestic plan with risks, benefits, and alternatives discussed, and informed consent obtained. ASA Physical Status: ASA3 Severe Disease Anesthetic Plan: GA Bene/Risks/Altern/Consents: Yes HP Complete Prior to Induction: Yes Gonsalo Marion MD Mar 30, 2017 09:35
[2017-03-30 16:37] VITALS: BP 140/62; PULSE 73; RESP 14; O2SAT 100
--- NOTE | 2017-03-30 16:42 | PCM.ANEP1 ---
Post Anesthesia PACU Phase 1 Assessment Vital Signs Vital Signs Date Time Temp Pulse Resp B/P Pulse Ox O2 Delivery O2 Flow Rate FiO2 03/30/17 16:37 36.0 73 14 140/62 100 Nasal Cannula 4 03/30/17 12:50 36.5 60 18 132/72 100 Anesthetic Administered: GA Level of Alertness: Awake, talking SMART's with Equal Strength: Yes Pain: No Nausea or Vomiting: No CV Function & Hydration Stable: Yes Airway Device: Oxygen Delivery: Nasal Cannula Lungs: Clear to Auscultation Dermatome Level: Full Sensation PACU Phase 2 Assessment Complications: No Patient Instructions Provided: N/A Gonsalo Marion MD Mar 30, 2017 16:42
[2017-03-30 16:43] VITALS: BP 140/60; PULSE 68; RESP 19; O2SAT 98
[2017-03-30 16:47] VITALS: BP 136/64; PULSE 67; RESP 12; O2SAT 100
[2017-03-30 16:59] VITALS: BP 155/66; PULSE 67; RESP 16; O2SAT 99
[2017-03-30 17:15] VITALS: BP 133/68; PULSE 66; RESP 16; O2SAT 100
--- NOTE | 2017-03-30 21:40 | OP ---
[address] [address] OPERATIVE REPORT PATIENT: CURTIS LEWIS : 1935 MR#: [id number] ADMIT: 03/30/2017 JOB ID: [id number] DATE OF SURGERY: 03/30/2017 SURGEON: Samantha Posey MD. PREOPERATIVE DIAGNOSIS(ES): Urinary retention. POSTOPERATIVE DIAGNOSIS(ES): Urinary retention. PROCEDURE PERFORMED: Cystoscopy and transurethral resection of prostate. LOGISTICS PROGRAM MANAGER: None. FINDINGS: 1. Coapted lobes of prostate with right lobe hypertrophy as well as median lobe hypertrophy. 2. Severely trabeculated bladder. 3. Orthotopic ureteral orifices. ANESTHESIA: General. ESTIMATED BLOOD LOSS: Less than 10 mL. DRAINS: An 18-Burkinan coude catheter to the bladder. SPECIMENS: Prostate chips. COMPLICATIONS: None. CONDITION: Stable. INDICATION FOR PROCEDURE: The patient is an 81-year-old male with urinary retention refractory to medical management and voiding trials. He now presents for transurethral resection of prostate. DESCRIPTION OF THE PROCEDURE: After informed consent was obtained, the patient was taken to the operating room. A time-out was performed, identifying correct patient, surgical site, and procedure. General anesthesia was smoothly induced. He was given intravenous antibiotics just prior to start of the procedure. His genitals were then prepped and draped in the usual sterile fashion. A 26-Burkinan resectoscope was applied to the patient's urethra and advanced into the bladder. Bladder was drained. Both ureteral orifices were seen in orthotopic position. The bladder was severely trabeculated. There was a large median lobe as well as right lobe of prostate. These were resected in piecemeal fashion. TwoFik evacuator was use intermittently through the case to evacuate the chips. At the end of the procedure, the ureteral orifices were verified as left as undisturbed. An 18-Burkinan catheter was placed. There was excellent hemostasis with crystal clear output at the end of the procedure. He appeared to tolerate the procedure well without any apparent complications. He was reversed from general anesthesia and taken to the PACU in good and stable condition. MURALI
--- NOTE | 2017-04-01 16:41 | PATH ---
SURGICAL PATHOLOGY Attending Physician:Samantha Posey, CASE STATUS: Signed Out PATIENT NAME: CURTIS LEWIS PID: [id number] : 1935 DATE COLLECTED:03/30/2017 00:00 SPECIMEN: Prostate, Chips CLINICAL HISTORY: URINARY RETENTION 1). 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 ICD10: N40.1 GROSS DESCRIPTION: The specimen is received in one formalin filled container labeled with the patient's name, sublabeled "prostate chips" and consists of multiple pink-stauffer portions of tissue which aggregate to 6.0 x 3.0 x 1.0 CM. The specimen weighs 6 g in total. The specimen is entirely submitted in 6 cassettes. 03/31/2017[place] ICD-9 CODES: CPT CODES: 1: 07223 Electronically Signed Out Samantha Monroe MD [facility] [address], [place] [address] Technical component performed at [facility], [facility] [address], [address]
== END | disposition home or self-care (01) ==
LOC: SAS 12:26
PROVIDERS: ATTEND Urology
DX: N40.1 Benign prostatic hyperplasia with lower urinary tract symptoms (principal); R33.8 Other retention of urine; I48.91 Unspecified atrial fibrillation; I50.9 Heart failure, unspecified; I10 Essential (primary) hypertension; F03.90 Unspecified dementia, unspecified severity, without behavioral disturbance, psychotic disturbance, mood disturbance, and anxiety; F17.210 Nicotine dependence, cigarettes, uncomplicated; Z88.2 Allergy status to sulfonamides; Z95.0 Presence of cardiac pacemaker; Z79.01 Long term (current) use of anticoagulants; Z79.899 Other long term (current) drug therapy; Z88.1 Allergy status to other antibiotic agents
CPT/HCPCS: 36415; 52601; 84132; 85610; 88305; J2405; J3010; J7120